=== PATIENT | male | born 1940 | race Caucasian/White ===

== ENCOUNTER → 2021-08-31 | Day surgery (SDC) | payer MEDICARE, OTHER ==
[~2021-08-31] VITALS: Ht 167.6 cm; Wt 97.5 kg
[~2021-08-31] MED LIST: ALLOPURINOL 30300 MG PO; GABAPENTIN800 MG PO; LISINOPRIL20 MG PO; NEURONTIN400 MG PO; OXY-IR 5MG5 MG PO; PERCOCET 5-3251 EACH PO
[2021-08-31 08:03] LABS: HCT 41.7 % (42.0-52.0); HGB 14.1 g/dl (13.2-18.0); MCH 35.3 pg (25.0-31.0); MCHC 33.8 g/dL (32.0-36.0); MCV 104.3 fL (78.0-100.0); MPV 9.2 fL (6.0-9.5); RDW 13.9 % (11.5-14.0); WBC 6.1 K/uL (4.0-10.5)
[2021-08-31 08:05] LABS: ALBUMIN 3.9 g/dL (3.4-5.0); BILIRUBIN - TOTAL 0.5 mg/dL (0.2-1.0); BUN/CREAT RATIO (CALC) 14.8 RATIO; CREATININE 1.15 mg/dL (0.67-1.17); GLOBULIN (CALCULATION) 3.4 g/dL; POTASSIUM 4.1 mmol/L (3.5-5.1); TOTAL PROTEIN 7.3 g/dL (6.4-8.2)
== END | disposition home or self-care (01) ==
LOC: FAS 07:04
PROVIDERS: Surgery
DX: Z12.11 Encounter for screening for malignant neoplasm of colon (principal); I10 Essential (primary) hypertension; Z85.038 Personal history of other malignant neoplasm of large intestine; Z90.49 Acquired absence of other specified parts of digestive tract; Z79.899 Other long term (current) drug therapy
CPT/HCPCS: 36415; 80053; J7120

== ENCOUNTER 2022-07-30 10:31 | Emergency (ER) | payer MEDICARE, OTHER ==
[2022-07-30 10:56] LABS: BASOPHIL 0.2 % (0-2); EOSINOPHIL 0 % (0-7); HCT 42.8 % (42.0-52.0); HGB 14.3 g/dl (13.2-18.0); LYMPHOCYTE 17.2 % (15-48); MCH 33.2 pg (25.0-31.0); MCHC 33.4 g/dL (32.0-36.0); MCV 99.3 fL (78.0-100.0); MONOCYTE 15.6 % (0-12); MPV 9.2 fL (6.0-9.5); NRBC 0; PLT 157 K/uL (150-400); RBC 4.31 M/uL (4.70-6.00); RDW 13.2 % (11.5-14.0); WBC 5.1 K/uL (4.0-10.5)
[2022-07-30 11:03] LABS: INR 1.07 (0.9-1.2); PROTHROMBIN TIME 13.6 SECONDS (11.9-13.9); PTT 32.5 SECONDS (24.9-34.6)
[2022-07-30 11:25] LABS: ACETAMINOPHEN (TYLENOL) <2.0 ug/mL (10.0-30.0); ALBUMIN 3.8 g/dL (3.4-5.0); ALKALINE PHOSHATASE 61 U/L (46-116); ALT 29 U/L (16-63); AST 35 U/L (15-37); BILIRUBIN - TOTAL 0.6 mg/dL (0.2-1.0); BUN 16 mg/dL (7-18); BUN/CREAT RATIO (CALC) 12.2 RATIO; CHLORIDE 105 mmol/L (98-107); CO2 (BICARBONATE) 27 mmol/L (21-32); CREATININE 1.31 mg/dL (0.67-1.17); GLOBULIN (CALCULATION) 2.8 g/dL; GLUCOSE 117 mg/dL (74-106); TOTAL PROTEIN 6.6 g/dL (6.4-8.2)
[2022-07-30 13:24] LABS: INFLUENZA A NAA NEGATIVE (NEGATIVE)
[2022-07-30 13:26] LABS: CORONAVIRUS 2019 SARS-COV-2 POSITIVE (NEGATIVE)
[2022-07-30 14:17] LABS: BILIRUBIN NEGATIVE (NEGATIVE); BLOOD 1+ Ery/uL (NEGATIVE); CLARITY CLEAR (CLEAR); COLOR YELLOW (YELLOW); GLUCOSE (U) NORMAL (NORMAL); LEUKOCYTES NEGATIVE Leu/uL (NEGATIVE); NITRITE NEGATIVE (NEGATIVE); PROTEIN TRACE (LOW) mg/dL (NEGATIVE); SPECIFIC GRAVITY 1.025 (1.001-1.030)
[2022-07-30 14:24] LABS: BARBITURATES NEGATIVE (NEGATIVE); ECSTASY (MDMA) NEGATIVE (NEGATIVE); MARIJUANA (THC) NEGATIVE (NEGATIVE); METHADONE NEGATIVE (NEGATIVE); OPIATES NEGATIVE (NEGATIVE)
[2022-07-30 14:25] LABS: AMPHETAMINES NEGATIVE (NEGATIVE); OXYCODONE POSITIVE (NEGATIVE)
[2022-07-30] MEDS ORDERED: PAXLOVID 150-11 EACH PO (14:46)
[2022-07-30 14:57] LABS: URINARY RBC RARE; URINARY WBC RARE
== END 2022-07-30 15:09 | disposition home or self-care (01) ==
LOC: FER 10:31
PROVIDERS: Internal Medicine
DX: U07.1 COVID-19 (principal); R91.8 Other nonspecific abnormal finding of lung field; I10 Essential (primary) hypertension
CPT/HCPCS: 36415; 70450; 71250; 72125; 72128; 72131; 80053; 80305; 81001; 82140; 82550; 83605; 83880; 84145; 85025; 85610; 85730; 93005; G0480; J7030; U0002